=== PATIENT | female | born 1980 | race Caucasian/White ===

== ENCOUNTER → 2024-05-13 | Outpatient (CLI) | payer MEDICAID, OTHER ==
[2024-05-13 18:26] LABS: BASO # 0.1 10^3/uL (0.0-0.2); BASO % 0.6 % (0.0-1.0); EOS # 0.1 10^3/uL (0.0-0.5); EOS % 0.7 % (0.0-3.0); HEMATOCRIT 39.2 % (36.0-47.0); HEMOGLOBIN 12.3 g/dl (12.0-15.5); LYMPH # 2.6 10^3/uL (1.5-5.0); LYMPH % 19.6 % (24.0-44.0); MEAN CORPUSCULAR HEMOGLOBIN 25.6 pg (27.0-33.0); MEAN CORPUSCULAR HGB CONC 31.4 g/dl (32.0-36.5); MEAN CORPUSCULAR VOLUME 81.7 fl (80.0-96.0); MONO # 0.9 10^3/uL (0.0-0.8); MONO % 6.5 % (2.0-8.0); NEUTROPHILS # 9.6 10^3/uL (1.5-8.5); NEUTROPHILS % 72.1 % (36.0-66.0); PLATELET COUNT, AUTOMATED 317 10^3/uL (150-450); WHITE BLOOD COUNT 13.3 10^3/uL (4.0-10.0)
[2024-05-13 18:46] LABS: HEMOGLOBIN A1c 4.8 % (4.0-6.0)
[2024-05-13 18:48] LABS: ALBUMIN 3.8 G/DL (3.2-5.2); ALKALINE PHOSPHATASE 52 U/L (35-104); ALT/SGPT 14 U/L (7.0-40); AST/SGOT 13 U/L (<34); BILIRUBIN,TOTAL 0.3 MG/DL (0.3-1.2); BLOOD UREA NITROGEN 7 MG/DL (9-23); CALCIUM LEVEL 9.8 MG/DL (8.5-10.1); CARBON DIOXIDE LEVEL 22 MMOL/L (20-31); CHLORIDE LEVEL 104 MMOL/L (98-107); CHOLESTEROL LEVEL 203 MG/DL (<200); CHOLESTEROL RISK RATIO 3.29 (<5); CREATININE FOR GFR 0.54 MG/DL (0.55-1.30); GLOMERULAR FILTRATION RATE > 60.0 (>58); GLUCOSE, FASTING 97 MG/DL (60-100); HDL CHOLESTEROL 61.7 MG/DL (>40); LDL CHOLESTEROL 111.9 MG/DL (<100); NON-HDL-C 141.3 MG/DL; POTASSIUM SERUM 4.4 MMOL/L (3.5-5.1); SODIUM LEVEL 137 MMOL/L (136-145); TOTAL PROTEIN 7.5 G/DL (5.7-8.2); TRIGLYCERIDES LEVEL 147 MG/DL (<150)
[2024-05-13 18:49] LABS: THYROID STIMULATING HORMONE 1.851 uIU/ML (0.55-4.78)
[2024-05-13 18:55] LABS: HEPATITIS B SURFACE ANTIBODY NEGATIVE (POSITIVE)
[2024-05-13 19:08] LABS: HEPATITIS B SURFACE ANTIGEN NEGATIVE (NEGATIVE)
[2024-05-13 19:20] LABS: HIV 1&2 SCREEN NEGATIVE (NEGATIVE)
[2024-05-13 19:27] LABS: HEPATITIS C VIRUS ABY INDEX < 0.02 INDEX (<0.8)
[2024-05-15 16:17] LABS: HEPATITIS A IgG TOTAL REACTIVE (NON-REACTIVE)
[2024-05-15 17:17] LABS: HEPATITIS B CORE ANTIBODY IGG NON-REACTIVE (NON-REACTIVE)
== END ==
LOC: M PLALAB 15:24
PROVIDERS: ATTEND Student in an Organized Health Care Education/Training Program
DX: F10.90 Alcohol use, unspecified, uncomplicated (principal)

== ENCOUNTER 2025-01-05 14:27 | Emergency (ER) | payer OTHER ==
[~2025-01-05] VITALS: Ht 154.9 cm; Wt 64.6 kg
[2025-01-05 14:29] VITALS: TEMP 97.4
[2025-01-05 17:19] LABS: BASO # 0.1 10^3/uL (0.0-0.2); BASO % 1.1 % (0.0-1.0); EOS # 0.2 10^3/uL (0.0-0.5); EOS % 2.6 % (0.0-3.0); LYMPH # 3.7 10^3/uL (1.5-5.0); LYMPH % 39.2 % (24.0-44.0); MONO # 0.7 10^3/uL (0.0-0.8); MONO % 7.3 % (2.0-8.0); NEUTROPHILS # 4.6 10^3/uL (1.5-8.5); NEUTROPHILS % 49.5 % (36.0-66.0); PLATELET COUNT, AUTOMATED 263 10^3/uL (150-450)
[2025-01-05 17:42] LABS: HCG, SERUM QUALITATIVE NEGATIVE (NEGATIVE)
[2025-01-05 17:45] LABS: ALT/SGPT 27 U/L (7.0-40); AST/SGOT 29 U/L (<34); CALCIUM LEVEL 9.7 MG/DL (8.5-10.1); CARBON DIOXIDE LEVEL 25 MMOL/L (20-31); CHLORIDE LEVEL 104 MMOL/L (98-107); CREATININE FOR GFR 0.53 MG/DL (0.55-1.30); GLOMERULAR FILTRATION RATE > 90.0 (>58); POTASSIUM SERUM 4.1 MMOL/L (3.5-5.1); SODIUM LEVEL 141 MMOL/L (136-145)
[2025-01-05] MEDS: KETOROLAC 30 MG/ML 1 ML VIAL IV ONE (17:51)
[2025-01-05 19:27] LABS: KETONE, URINE AUTO RFX NEGATIVE (NEGATIVE); LEUKOCYTE ESTERASE UR AUTO RFX NEGATIVE (NEGATIVE); MUCUS, URINE RFX SMALL (NEGATIVE); NITRITE, URINE AUTO RFX NEGATIVE (NEGATIVE); RBC, URINE AUTO RFX 0 /HPF (0-3); SQUAM EPITHELIAL CELL UR AURFX 1 /HPF (0-6); WBC, URINE AUTO RFX 1 /HPF (0-3)
[2025-01-05 19:34] VITALS: BP 168/97; O2SAT 97
[2025-01-05] MEDS ORDERED: KETO-204 PO (19:44)
== END 2025-01-05 19:56 | disposition home or self-care (01) ==
LOC: M ED 14:27
DX: K82.4 Cholesterolosis of gallbladder (principal); I10 Essential (primary) hypertension; F17.200 Nicotine dependence, unspecified, uncomplicated; Z88.6 Allergy status to analgesic agent; Z79.899 Other long term (current) drug therapy
CPT/HCPCS: 76705; 80048; 80076; 81001; 83690; 84703; 85025; 96374; 99283; J1885

== ENCOUNTER 2025-01-22 18:13 | Emergency (ER) | payer OTHER ==
[~2025-01-22] VITALS: Ht 162.6 cm; Wt 65.5 kg
[~2025-01-22 18:13] MED LIST: KETO-204 PO
[2025-01-22] MEDS: ONDANSETRON 4MG 2ML VIAL IV ONE (19:07)
[2025-01-22] MEDS: PANTOPRAZOLE 40MG VIAL IV ONE (19:07)
[2025-01-22] MEDS: KETOROLAC 30 MG/ML 1 ML VIAL IV ONE (19:11)
[2025-01-22] MEDS: NS (Normal Saline) 0.9% 1,000 ML IV ONE (19:11)
[2025-01-22 19:32] LABS: BASO # 0.1 10^3/uL (0.0-0.2); BASO % 0.6 % (0.0-1.0); EOS # 0.3 10^3/uL (0.0-0.5); EOS % 2.7 % (0.0-3.0); LYMPH # 3.3 10^3/uL (1.5-5.0); LYMPH % 29.3 % (24.0-44.0); MONO # 0.8 10^3/uL (0.0-0.8); MONO % 7.1 % (2.0-8.0); NEUTROPHILS # 6.8 10^3/uL (1.5-8.5); NEUTROPHILS % 60.1 % (36.0-66.0); PLATELET COUNT, AUTOMATED 298 10^3/uL (150-450)
[2025-01-22 19:50] LABS: HCG, SERUM QUALITATIVE NEGATIVE (NEGATIVE)
[2025-01-22 19:52] LABS: ALT/SGPT 19 U/L (7.0-40); AST/SGOT 24 U/L (<34); CALCIUM LEVEL 8.5 MG/DL (8.5-10.1); CARBON DIOXIDE LEVEL 24 MMOL/L (20-31); CHLORIDE LEVEL 109 MMOL/L (98-107); CREATININE FOR GFR 0.52 MG/DL (0.55-1.30); GLOMERULAR FILTRATION RATE > 90.0 (>58); POTASSIUM SERUM 4.7 MMOL/L (3.5-5.1); SODIUM LEVEL 143 MMOL/L (136-145)
[2025-01-22 20:00] LABS: KETONE, URINE AUTO RFX NEGATIVE (NEGATIVE); LEUKOCYTE ESTERASE UR AUTO RFX NEGATIVE (NEGATIVE); NITRITE, URINE AUTO RFX NEGATIVE (NEGATIVE); RBC, URINE AUTO RFX 0 /HPF (0-3); SQUAM EPITHELIAL CELL UR AURFX 0 /HPF (0-6); WBC, URINE AUTO RFX 0 /HPF (0-3)
[2025-01-22 21:18] VITALS: BP 165/75; TEMP 98.3; O2SAT 98
== END 2025-01-22 21:20 | disposition home or self-care (01) ==
LOC: EDBD 18:13 → M ED 18:13
DX: K80.20 Calculus of gallbladder without cholecystitis without obstruction (principal); K82.8 Other specified diseases of gallbladder; K76.0 Fatty (change of) liver, not elsewhere classified; I10 Essential (primary) hypertension; F10.10 Alcohol abuse, uncomplicated; Z88.6 Allergy status to analgesic agent
CPT/HCPCS: 76705; 80048; 80076; 81001; 83690; 84703; 85025; 96361; 96374; 96375; 99284; J1885; J2405; J2470

== ENCOUNTER 2025-01-24 02:10 | Emergency (ER) | payer OTHER ==
[~2025-01-24] VITALS: Ht 162.6 cm; Wt 62.7 kg
[2025-01-24] MEDS: MORPHINE 4 MG/ML 1 ML VIAL IV ONE (02:54)
[2025-01-24] MEDS: ONDANSETRON 4MG 2ML VIAL IV ONE (02:54)
[2025-01-24 03:13] LABS: PLATELET COUNT, AUTOMATED 259 10^3/uL (150-450)
[2025-01-24 03:15] LABS: ALT/SGPT 17 U/L (7.0-40); AST/SGOT 23 U/L (<34); CALCIUM LEVEL 8.9 MG/DL (8.5-10.1); CARBON DIOXIDE LEVEL 25 MMOL/L (20-31); CHLORIDE LEVEL 107 MMOL/L (98-107); CREATININE FOR GFR 0.49 MG/DL (0.55-1.30); GLOMERULAR FILTRATION RATE > 90.0 (>58); POTASSIUM SERUM 3.9 MMOL/L (3.5-5.1); SODIUM LEVEL 144 MMOL/L (136-145)
[2025-01-24 03:19] LABS: ATYPICAL LYMPH 6 % (0-5); EOSINOPHILS 1 % (0-3); LYMPHOCYTES 30 % (16-44); MONOCYTES 9 % (0-5); NEUTROPHILS 54 % (28-66)
[2025-01-24 03:21] LABS: PLATELET ESTIMATE NORMAL (NORMAL)
[2025-01-24 03:32] LABS: ETHYL ALCOHOL (ETHANOL) 0.312 % (0.000-0.010)
[2025-01-24] MEDS ORDERED: ISOVUE-370 76% 100 ML VIAL As Ordered ONE (04:40)
[2025-01-24 04:47] LABS: MONO SCRN NEGATIVE (NEGATIVE)
[2025-01-24] MEDS: KETOROLAC 30 MG/ML 1 ML VIAL IV ONE (05:00)
[2025-01-24] MEDS ORDERED: KETO-204 PO (06:07)
[2025-01-24] MEDS ORDERED: LEVS0.123 PO (06:07)
[2025-01-24 06:15] VITALS: BP 124/66; TEMP 97.8; O2SAT 96
== END 2025-01-24 06:35 | disposition home or self-care (01) ==
LOC: M ED 02:10
DX: K80.20 Calculus of gallbladder without cholecystitis without obstruction (principal); I10 Essential (primary) hypertension; F17.200 Nicotine dependence, unspecified, uncomplicated; F10.129 Alcohol abuse with intoxication, unspecified; Z88.6 Allergy status to analgesic agent; Z79.899 Other long term (current) drug therapy
CPT/HCPCS: 74177; 80048; 80076; 82077; 83690; 85025; 86308; 96374; 96375; 99284; J1885; J2405; Q9967

== ENCOUNTER 2025-02-11 10:39 | Day surgery (SDC) | payer OTHER ==
[~2025-02-11] VITALS: Ht 162.6 cm; Wt 66.7 kg
[~2025-02-11 10:39] MED LIST changes: +LEVS0.123 PO; +LIDOCAINE 1% SDV 30 ML VIAL As Ordered ONE
[2025-02-11] MEDS ORDERED: LR 1,000 ML IV SCH (11:00)
[2025-02-11] MEDS: CelecoXIB 400 MG CAP PO ONE (12:18)
[2025-02-11] MEDS ORDERED: MIDAZOLAM INJ 2 MG/2 ML VIAL As Ordered ONE (12:35)
[2025-02-11] MEDS ORDERED: SUGAMMADEX SODIUM 500 MG/5 ML VIAL As Ordered ONE (12:37)
[2025-02-11] MEDS ORDERED: ROCURONIUM BROMIDE 50MG/5ML VIAL As Ordered ONE (12:37)
[2025-02-11] MEDS ORDERED: LIDOCAINE 2% 100 MG/5 ML SDV (FOR ANES.) As Ordered ONE (12:37)
[2025-02-11] MEDS ORDERED: IPRATROPIUM 0.5 MG/ALBUTEROL 2.5 MG INH SOL UD 3 ML NEB ONE (12:40)
[2025-02-11] MEDS ORDERED: dexAMETHasone 4 MG/ML 1 ML VIAL As Ordered ONE (13:07)
[2025-02-11] MEDS ORDERED: KETOROLAC 30 MG/ML 1 ML VIAL As Ordered ONE (13:07)
[2025-02-11] MEDS ORDERED: ONDANSETRON 4MG 2ML VIAL As Ordered ONE (13:07)
[2025-02-11] MEDS: INDOCYANINE GREEN 25 MG VIAL IV ONE (13:23)
[2025-02-11] MEDS: ceFAZolin SOD 2 GM IV ONCE IV ONE (13:30)
[2025-02-11] MEDS ORDERED: LABETALOL 100 MG/20 ML VIAL As Ordered ONE (13:34)
[2025-02-11] MEDS ORDERED: KETAMINE HCL 200 MG/20 ML VIAL As Ordered ONE (13:36)
[2025-02-11] MEDS: ONDANSETRON 4MG 2ML VIAL IV PRN (15:39)
[2025-02-11] MEDS: HYDROMORPHONE HCL 0.5 MG/0.5 ML SYRINGE IV PRN (15:39)
[2025-02-11 16:50] VITALS: BP 165/87; TEMP 97; O2SAT 97
== END 2025-02-11 17:09 | disposition home or self-care (01) ==
LOC: M SDC 10:39
PROVIDERS: ATTEND Surgery
DX: K81.1 Chronic cholecystitis (principal); F17.210 Nicotine dependence, cigarettes, uncomplicated; R01.1 Cardiac murmur, unspecified; Z87.09 Personal history of other diseases of the respiratory system; Z86.79 Personal history of other diseases of the circulatory system; Z88.6 Allergy status to analgesic agent
CPT/HCPCS: 47562; 88304; 93005; J0665; J0690; J1100; J1171; J1885; J1920; J2250; J2405; J3010; Q9968; S2900

== ENCOUNTER 2025-04-04 15:14 | Emergency (ER) | payer OTHER ==
[~2025-04-04] VITALS: Ht 162.6 cm; Wt 69.0 kg
[~2025-04-04 15:14] MED LIST changes: -LIDOCAINE 1% SDV 30 ML VIAL As Ordered ONE
[2025-04-04 15:17] VITALS: BP 167/87; TEMP 97.2; O2SAT 97
[2025-04-04 16:14] LABS: BASO # 0.1 10^3/uL (0.0-0.2); BASO % 0.6 % (0.0-1.0); EOS # 0.3 10^3/uL (0.0-0.5); EOS % 1.9 % (0.0-3.0); LYMPH # 3.6 10^3/uL (1.5-5.0); LYMPH % 22.5 % (24.0-44.0); MONO # 1.3 10^3/uL (0.0-0.8); MONO % 8.4 % (2.0-8.0); NEUTROPHILS # 10.4 10^3/uL (1.5-8.5); NEUTROPHILS % 65.7 % (36.0-66.0); PLATELET COUNT, AUTOMATED 293 10^3/uL (150-450)
[2025-04-04 16:38] LABS: C REACTIVE PROTEIN QUANTITATIV < 0.50 MG/DL (<1.0)
[2025-04-04 16:45] LABS: HCG, SERUM QUALITATIVE NEGATIVE (NEGATIVE)
[2025-04-04 16:46] LABS: CALCIUM LEVEL 8.9 MG/DL (8.5-10.1); CARBON DIOXIDE LEVEL 24 MMOL/L (20-31); CHLORIDE LEVEL 112 MMOL/L (98-107); CREATININE FOR GFR 0.48 MG/DL (0.55-1.30); GLOMERULAR FILTRATION RATE > 90.0 (>58); POTASSIUM SERUM 4.3 MMOL/L (3.5-5.1); SODIUM LEVEL 144 MMOL/L (136-145)
[2025-04-04] MEDS: DOXYCYCLINE HYCLATE 100 MG TABLET PO ONE (16:55)
[2025-04-04] MEDS ORDERED: DOXY-440 PO (16:56)
[2025-04-04] MEDS ORDERED: MUPI2OI TOP (16:56)
== END 2025-04-04 17:06 | disposition home or self-care (01) ==
LOC: M ED 15:14
DX: L98.1 Factitial dermatitis (principal); L03.90 Cellulitis, unspecified; I10 Essential (primary) hypertension; F17.200 Nicotine dependence, unspecified, uncomplicated; Z88.6 Allergy status to analgesic agent; F19.11 Other psychoactive substance abuse, in remission; Z79.899 Other long term (current) drug therapy; Z79.2 Long term (current) use of antibiotics

== ENCOUNTER 2025-05-18 04:40 | Emergency (ER) | payer OTHER ==
[~2025-05-18 04:40] MED LIST changes: +DOXY-440 PO; +MUPI2OI TOP
[2025-05-18 04:44] VITALS: TEMP 98.5
[2025-05-18] MEDS ORDERED: IBUP80TA PO (04:47)
[2025-05-18 05:50] LABS: BASO # 0.1 10^3/uL (0.0-0.2); BASO % 0.9 % (0.0-1.0); EOS # 0.2 10^3/uL (0.0-0.5); EOS % 1.9 % (0.0-3.0); LYMPH # 3.9 10^3/uL (1.5-5.0); LYMPH % 32.8 % (24.0-44.0); MONO # 0.9 10^3/uL (0.0-0.8); MONO % 7.8 % (2.0-8.0); NEUTROPHILS # 6.7 10^3/uL (1.5-8.5); NEUTROPHILS % 56.3 % (36.0-66.0); PLATELET COUNT, AUTOMATED 256 10^3/uL (150-450)
[2025-05-18 06:00] VITALS: BP 146/71; O2SAT 96
[2025-05-18 06:15] LABS: INR 0.9
[2025-05-18 06:25] LABS: CK-MB VALUE MASS 1.5 NG/ML (<3.6)
[2025-05-18 06:27] LABS: CALCIUM LEVEL 8.7 MG/DL (8.5-10.1); CARBON DIOXIDE LEVEL 23 MMOL/L (20-31); CHLORIDE LEVEL 110 MMOL/L (98-107); CPK CREATINE PHOSPHOKINASE 109 U/L (34-145); CREATININE FOR GFR 0.49 MG/DL (0.55-1.30); GLOMERULAR FILTRATION RATE > 90.0 (>58); MB/CK RELATIVE INDEX 1.37 (< OR =4); POTASSIUM SERUM 3.4 MMOL/L (3.5-5.1); SODIUM LEVEL 139 MMOL/L (136-145)
[2025-05-18 06:30] LABS: FREE T4 1.37 NG/DL (0.89-1.76)
== END 2025-05-18 06:34 | disposition left against medical advice (07) ==
LOC: M ED 04:40
DX: Z53.21 Procedure and treatment not carried out due to patient leaving prior to being seen by health care provider (principal)